=== PATIENT | male | born 1940 | race Hispanic/Latino ===

== ENCOUNTER 2018-02-27 17:38 | Emergency (ER) | payer OTHER, MEDICARE ==
[2018-02-27] MEDS ORDERED: NA BORATE/BORIC AC/H2O/NACL 120 ML OPHTH IRRIG SOLN ONE (17:44)
[2018-02-27] MEDS ORDERED: TETRACAINE HCL 0.5% 4 ML OPHTH SOLN ONE (17:44)
[2018-02-27] MEDS ORDERED: FLUORESCEIN SODIUM 0.6 MG STRIP ONE (17:45)
[2018-02-27] MEDS ORDERED: CEPHALEXIN 500 MG CAPSULE ONE (18:54)
[2018-02-27] MEDS ORDERED: GENTAMICIN SULFATE 0.3% 5ML DROPS ONE (18:54)
[2018-02-27] MEDS ORDERED: HYDROCODONE/ACETAMINOPHEN 5/325 MG TAB ONE (18:54)
== END 2018-02-27 19:28 | disposition home or self-care (01) ==
LOC: EDH 17:38
DX: H16.011 Central corneal ulcer, right eye (principal); H16.8 Other keratitis; I25.10 Atherosclerotic heart disease of native coronary artery without angina pectoris; E11.9 Type 2 diabetes mellitus without complications; E78.5 Hyperlipidemia, unspecified; I10 Essential (primary) hypertension; Z98.890 Other specified postprocedural states